=== PATIENT | female | born 1990 | race Caucasian/White ===

== ENCOUNTER 2017-06-09 22:28 | Emergency (ER) | payer MEDICAID, OTHER ==
[2017-06-09] MEDS ORDERED: Sodium Chloride 0.9% 1,000 ML IV STA (22:57)
--- NOTE | 2017-06-09 22:58 | C.PDOC ---
History Of Present Illness 26 y/o F c no PMHx p/w lightheadedness x 6 months. Patient states that for about 6 months, she becomes intermittently lightheaded throughout the day. She states it is typically worst in the morning after eating breakfast. She notes it is worse when standing up quickly. She denies any syncopal episodes. She states sometimes her vision becomes blurry or seems to be going black. She notes that she also feels like she can not take a deep breath at times. These episodes have been occurring intermittently for 6 months and she has complete returns to baseline. She also notes some leg cramping at night time and states her eyes get red. She denies fever, chills, chest pain, vomiting, pain, leg swelling, recent travel, past surgeries, hormone use, previous DVT/PE. Time Seen by Provider: 06/09/17 22:39 Chief Complaint (Nursing): Dizziness/Lightheaded Past Medical History Vital Signs: Last Vital Signs Temp 97.7 F 06/09/17 22:41 Pulse 85 06/09/17 22:41 Resp 18 06/09/17 22:41 BP 109/72 06/09/17 22:41 Pulse Ox 99 06/09/17 23:00 Family History: States: Unknown Family Hx - Social History Hx Alcohol Use: No Hx Substance Use: No Review Of Systems Except As Marked, All Systems Reviewed And Found Negative. Constitutional: Negative for: Fever Cardiovascular: Negative for: Chest Pain Physical Exam - Physical Exam Appears: Well, Non-toxic, No Acute Distress Skin: Normal Color Head: Atraumatic, Normacephalic Eye(s): bilateral: PERRL Oral Mucosa: Moist Neck: Supple Chest: No Deformity Cardiovascular: Rhythm Regular Respiratory: Normal Breath Sounds Gastrointestinal/Abdominal: Soft, No Tenderness Back: No CVA Tenderness, No Vertebral Tenderness Extremity: No Tenderness, No Swelling Pulses: Left Radial: Normal, Right Radial: Normal Neurological/Psych: Oriented x3, Normal Speech, Normal Cognition, Normal Cranial Nerves, Cerebellar Signs (normal), Normal Motor, Normal Sensation, No Dysarthria Gait: Steady Other Neurological Findings: No Facial Palsy ED Course And Treatment - Laboratory Results Result Diagrams: 06/09/17 23:12 06/09/17 23:12 O2 Sat by Pulse Oximetry: 99 Medical Decision Making Medical Decision Making: Will evaluate patient for arrhythma, electrolyte abnormality, anemia, infection , . EKG NSR 83 bpm, no ST/T wave changes. Orthostatics negative. CXR negative. Patient offered further observation in hospital but she declined and preferred to follow up with primary care. In the abscess of abnormalities on EKG, CXR, Urine, or blood, patient will require further evaluation with primary care but no emergent finding today. Disposition - Disposition Referrals: Non [facility] Provider, [Primary Care Provider] - Disposition Time: 23:55 Condition: STABLE Instructions: Lightheadedness (ED) Forms: [facility] (Nepalese) - Clinical Impression Clinical Impression: Dizziness
[2017-06-09] MEDS ORDERED: Sodium Chloride 0.9% 1,000 ML ONE (23:14)
[2017-06-09 23:15] LABS: BASO # 0.1 K/uL (0.0-0.2); BASO % 0.8 % (0.0-2.0); EOS # 0.1 K/uL (0.0-0.7); EOS % 1.1 % (0.0-4.0); LYMPH # 3.5 K/uL (1.0-4.3); LYMPH % 42.4 % (20.0-40.0); MEAN CORPUSCULAR HEMOGLOBIN 29.7 pg (27.0-31.0); MEAN CORPUSCULAR HGB CONC 34.1 g/dL (33.0-37.0); MEAN PLATELET VOLUME 7.7 fL (7.2-11.7); MONO # 0.6 K/uL (0.0-0.8); MONO % 7.7 % (0.0-10.0); RED CELL DISTRIBUTION WIDTH 12.7 % (11.5-14.5); WHITE BLOOD COUNT 8.3 K/uL (4.8-10.8)
[2017-06-09 23:21] LABS: RBC URINE 9 /hpf (0-3); URINE BACTERIA RARE (<OCC); URINE BILIRUBIN NEGATIVE (NEGATIVE); URINE BLOOD 2+ (NEGATIVE); URINE COLOR Yellow (YELLOW); URINE GLUCOSE (UA) NORMAL (Normal); URINE KETONE NEGATIVE (NEGATIVE); URINE LEUKOCYTE ESTERASE NEG Leu/uL (Negative); URINE PROTEIN NEGATIVE (NEGATIVE); URINE UROBILINOGEN NORMAL mg/dL (0.2-1.0); WBC URINE 1 /hpf (0-5)
[2017-06-09 23:27] LABS: CHLORIDE 98 mmol/L (98-107)
[2017-06-09 23:28] LABS: POTASSIUM 3.5 mmol/L (3.6-5.2); SODIUM 137 mmol/L (132-148)
[2017-06-09 23:30] LABS: ALB/GLOB RATIO 1.1 (1.0-2.1); ALKALINE PHOSPHATASE 51 U/L (38-126); ALT/SGPT 40 U/L (9-52); AST/SGOT 24 U/L (14-36); BLOOD UREA NITROGEN 7 mg/dL (7-17); CALCIUM 9.4 mg/dl (8.6-10.4); CARBON DIOXIDE 26 mmol/L (22-30); GFR AFRICAN-AMERICAN > 60; GLUCOSE,RANDOM 84 mg/dL (65-105); TOTAL PROTEIN 8.8 g/dL (6.3-8.3)
[2017-06-10 00:14] VITALS: BP 102/69; PULSE 80; RESP 16; TEMP 98; O2SAT 100
--- NOTE | 2017-06-10 07:29 | RAD ---
PROCEDURE: CHEST RADIOGRAPH, 1 VIEW HISTORY: lightheadedness COMPARISON: None available. FINDINGS: LUNGS: No infiltrate bilaterally. PLEURA: No pneumothorax or pleural fluid seen. CARDIOVASCULAR: Normal. OSSEOUS STRUCTURES: No significant abnormalities. VISUALIZED UPPER ABDOMEN: Normal. OTHER FINDINGS: None. IMPRESSION: No acute cardiopulmonary disease appreciated.
--- NOTE | 2017-06-10 13:35 | CARD ---
APPROVED REPORT EKG Measurement Heart [id number] <Conclusion> Normal sinus rhythm Normal ECG
== END 2017-06-10 00:20 | disposition home or self-care (01) ==
LOC: SUPCPDRO 22:28 → C.ER 22:28
DX: R42 Dizziness and giddiness (principal)
CPT/HCPCS: 71010; 80053; 81001; 82550; 83690; 84703; 85025; 93005; 96360; 99285; J7040